=== PATIENT | male | born 1965 | race Caucasian/White ===

== ENCOUNTER 2017-11-07 08:06 | Emergency (ER) | payer SELFPAY ==
[2017-11-07 08:19] VITALS: BP 138/80
--- NOTE | 2017-11-07 09:00 | ER Document Report ---
ED General - General Chief Complaint: Insect Bite Stated Complaint: INSECT BITE Time Seen by Provider: 11/07/17 08:47 TRAVEL OUTSIDE OF THE [place] IN LAST 30 DAYS: No - HPI Notes: Patient is a 52-year-old male that presents to the emergency department for chief complaint of insect bite to right side. Patient states 3 days ago he was bit by something on his right side. He reports increased pain and swelling in the area. He denies any drainage. He states it does seem to be getting more red. He denies any fevers or chills. He did not see what may have bit him. He has not taken any medication at home for his symptoms. Past Medical History: Denies Past Surgical History: Denies Social History: Daily tobacco, occasional alcohol, denies drugs Family History: Reviewed and noncontributory for presenting illness Allergies: Reviewed, see documented allergy list. REVIEW OF SYSTEMS: CONSTITUTIONAL : No fever No chills No diaphoresis No recent illness EENT: No vision changes No congestion No sore throat CARDIOVASCULAR: No chest pain No palpitations RESPIRATORY: No shortness of breath No cough No difficulty breathing GASTROINTESTINAL: No abdominal pain No nausea No vomiting No diarrhea GENITOURINARY: No dysuria No hematuria No difficulty urinating MUSCULOSKELETAL: No back pain No leg pain No arm pain SKIN: No rashes Right side lesion LYMPHATIC: No swollen, enlarged glands. NEUROLOGICAL: No lightheadedness No headache No weakness No paresthesias PSYCHIATRIC: No anxiety No depression PHYSICAL EXAMINATION: Vital signs reviewed, nursing noted reviewed. GENERAL: Well-appearing, well-nourished and in no acute distress. HEAD: Atraumatic, normocephalic. EYES: Eyes appear normal, extraocular movements intact, sclera anicteric, conjunctiva are normal. ENT: nares patent, oropharynx clear without exudates. Moist mucous membranes. NECK: Normal range of motion, supple without lymphadenopathy LUNGS: Breath sounds clear to auscultation bilaterally and equal. No wheezes rales or rhonchi. HEART: Regular rate and rhythm without murmurs ABDOMEN: Soft, nontender, normoactive bowel sounds. No rebound, guarding, or rigidity. No masses appreciated. EXTREMITIES: Nontender, good range of motion, no pitting or edema. NEUROLOGICAL: No focal neurological deficits. Moves all extremities spontaneously Motor and sensory grossly intact on exam. PSYCH: Normal mood, normal affect. SKIN: Warm, Dry, normal turgor. Area of erythema measuring 1.0 x 1.0 cm to right posterior thoracic back that is tender to palpation. Central clearing consistent with insect bite. Indurated with mild calor. No drainage or fluctuance. - Related Data Allergies/Adverse Reactions: No Known Allergies Allergy (Verified 11/07/17 08:15) Past Medical History - Social History Smoking Status: Current Every Day Smoker Family History: Reviewed & Not Pertinent Review of Systems - Review of Systems Notes: Dictated Physical Exam - Vital signs Vitals: Temp Pulse Resp BP Pulse Ox 97.9 F 63 16 138/80 H 97 11/07/17 08:18 11/07/17 08:18 11/07/17 08:18 11/07/17 08:18 11/07/17 08:18 - Notes Notes: Dictated Course - Re-evaluation Re-evalutation: 11/07/17 09:00 Vitals reviewed. Nursing note reviewed. Patient has a small area of cellulitis on his right back which looks like superimposed infection on an insect sting. He was given a prescription for Keflex and ibuprofen. There is no drainable abscess present. Patient will follow up with primary care for reevaluation in a few days if symptoms are continuing. He will return for new or worsening symptoms. Discharged home in stable condition. - Vital Signs Vital signs: Temp Pulse Resp BP Pulse Ox 97.9 F 63 16 138/80 H 97 11/07/17 08:18 11/07/17 08:18 11/07/17 08:18 11/07/17 08:18 11/07/17 08:18 Discharge - Discharge Clinical Impression: Cellulitis Qualifiers: Site of cellulitis: trunk Site of cellulitis of trunk: back Qualified Code(s): L03.312 - Cellulitis of back [any part except buttock] Insect bite Qualifiers: Encounter type: initial encounter Qualified Code(s): W57.XXXA - Bitten or stung by nonvenomous insect and other nonvenomous arthropods, initial encounter Condition: Stable Disposition: HOME, SELF-CARE Instructions: Cellulitis ([facility]), Insect Bites ([facility]), Family Physicians / Practices Additional Instructions: Please return to the emergency department if you have any worsening, or concern of your symptoms. Please return to the emergency department if you develop chest pain, difficulty breathing, severe abdominal pain, or ongoing vomiting. Please follow-up with your primary care physician in 2-3 days and any other recommended physicians. If prescribed, take all medications as directed. If you have any questions or concerns do not hesitate to return the emergency department for evaluation. [] Prescriptions: Cephalexin Monohydrate [Keflex 500 mg Capsule] 500 mg PO Q6H 5 Days capsule Ibuprofen 600 mg PO Q6 PRN #30 tablet PRN Reason: Pain Scale Of 1
== END 2017-11-07 09:19 | disposition home or self-care (01) ==
LOC: ER 08:06
DX: L03.312 Cellulitis of back [any part except buttock and flank] (principal); T14.8XXA Other injury of unspecified body region, initial encounter; W57.XXXA Bitten or stung by nonvenomous insect and other nonvenomous arthropods, initial encounter; F17.200 Nicotine dependence, unspecified, uncomplicated
CPT/HCPCS: 99281